=== PATIENT | male | born 2000 | race African-American/Black ===

== ENCOUNTER 2020-04-09 04:45 | Emergency (ER) | payer OTHER ==
[~2020-04-09] VITALS: Ht 182.9 cm; Wt 79.4 kg
[2020-04-09] MEDS ORDERED: NORCO5 PO (04:52)
[2020-04-09] MEDS ORDERED: PREDNISONE50 MG PO (05:27)
[2020-04-09] MEDS ORDERED: HYDROXYZINE HCL10 M2 PO (05:27)
[2020-04-09 05:34] VITALS: BP 122/74
== END 2020-04-09 05:35 | disposition home or self-care (01) ==
LOC: ER 04:45
DX: T78.49XA Other allergy, initial encounter (principal); J45.909 Unspecified asthma, uncomplicated; Z79.899 Other long term (current) drug therapy; X58.XXXA Exposure to other specified factors, initial encounter